=== PATIENT | female | born 1980 | race Caucasian/White ===

== ENCOUNTER 2020-09-26 01:19 | Emergency (ER) | payer BC, OTHER ==
[~2020-09-26 01:19] MED LIST: COLACE 100MG C100 MG PO
[2020-09-26 02:47] LABS: HEMOGLOBIN 13.3 gm/dl (12.3-15.3); RED BLOOD COUNT 4.42 M/UL (4.00-5.10); WHITE BLOOD COUNT 11.5 K/UL (4.5-11.0)
[2020-09-26 03:02] LABS: BUN/CREATININE RATIO 7 (0-10)
[2020-09-26] MEDS ORDERED: AUGMENTIN 875-1 EACH PO (04:36)
[2020-09-26] MEDS ORDERED: BACTRIM DS TAB1 EACH PO (04:36)
== END 2020-09-26 04:45 | disposition home or self-care (01) ==
LOC: ER1 01:19
PROVIDERS: Emergency Medicine
DX: K11.20 Sialoadenitis, unspecified (principal); Z20.822 Contact with and (suspected) exposure to COVID-19
CPT/HCPCS: 0240U; 70491; 80053; 81001; 84703; 85025; 87081; 87880; 96365; 96375; 99284; J0295; J1885; Q9967